=== PATIENT | male | born 2000 | race Caucasian/White ===

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

== ENCOUNTER → 2020-04-13 | Outpatient (REF) | payer BC ==
[~2020-04-13] MED LIST changes: +PRED10TA2; +PRED20TA PO
== END ==
LOC: M LAB REF 17:06
PROVIDERS: ATTEND Physician Assistant
DX: J02.9 Acute pharyngitis, unspecified (principal)

== ENCOUNTER 2020-06-28 13:33 | Emergency (ER) | payer BC, OTHER, SELFPAY ==
[~2020-06-28] VITALS: Ht 182.9 cm; Wt 96.9 kg
[2020-06-28] MEDS ORDERED: ACETAMINOPHEN 500 MG TAB PO ONE (14:45)
--- NOTE | 2020-06-28 15:40 | REPVR ---
PROCEDURE INFORMATION: Exam: XR Left Shoulder Exam date and time: 06/28/2020 3:02 PM Age: 20 years old Clinical indication: Pain; Shoulder; Left; Additional info: Injury TECHNIQUE: Imaging protocol: XR Left shoulder. Views: 2 or more views. COMPARISON: No relevant prior studies available. FINDINGS: Bones/joints: There is no acute fracture or dislocation. Soft tissues: Normal. IMPRESSION: No acute findings. Electronically signed by: Aries Ibarra On 06/28/2020 15:40:36 PM
[2020-06-28] MEDS ORDERED: LIDO5DIS41 TOP (16:36)
[2020-06-28 16:45] VITALS: BP 140/81
[2020-06-28] MEDS ORDERED: LIDOCAINE 5% (LIDODERM) PATCH TD ONE (16:45)
[2020-06-28] MEDS ORDERED: **NOTE PATIENT COMMENT** MISC XX SCH (21:00)
== END 2020-06-28 17:17 | disposition home or self-care (01) ==
LOC: M ED 13:33
DX: S29.012A Strain of muscle and tendon of back wall of thorax, initial encounter (principal); X50.0XXA Overexertion from strenuous movement or load, initial encounter; Y92.89 Other specified places as the place of occurrence of the external cause; Y93.89 Activity, other specified; Y99.0 Civilian activity done for income or pay; Z88.8 Allergy status to other drugs, medicaments and biological substances

== ENCOUNTER 2020-07-04 12:30 | Emergency (ER) | payer BC, OTHER, SELFPAY ==
[~2020-07-04] VITALS: Ht 182.9 cm; Wt 96.2 kg
[2020-07-04 12:30] VITALS: BP 142/69
[~2020-07-04 12:30] MED LIST changes: +LIDO5DIS41 TOP
[2020-07-04] MEDS ORDERED: ROBA750T4 PO (13:43)
== END 2020-07-04 13:51 | disposition home or self-care (01) ==
LOC: M ED 12:30
DX: S43.402A Unspecified sprain of left shoulder joint, initial encounter (principal); S16.1XXA Strain of muscle, fascia and tendon at neck level, initial encounter; X50.0XXA Overexertion from strenuous movement or load, initial encounter; Y92.89 Other specified places as the place of occurrence of the external cause; Y93.89 Activity, other specified; Y99.0 Civilian activity done for income or pay; Z88.8 Allergy status to other drugs, medicaments and biological substances

== ENCOUNTER → 2021-01-12 | Outpatient (CLI) | payer BC, OTHER ==
[~2021-01-12] MED LIST changes: +ROBA750T4 PO
--- NOTE | 2021-01-15 08:09 | REP ---
INDICATION: MUSCLE STRAIN C5-6. Repeat dictation. Preliminary report is provided at the time of the exam by jorje CHAVEZ. COMPARISON: Comparison CT study June 28, 2020.. TECHNIQUE: Sagittal and axial T1 and T2-weighted scans are acquired in the usual fashion with and without fat saturation. Sequences include spin echo, turbo spin-echo, and STIR imaging sequences. FINDINGS: Lumbar vertebral body heights are preserved and alignment is normal. Some straightening of the normal cervical lordosis. Cervical cord is normal in course, caliber, and signal intensity. No cord compressive lesion is seen. Is minimal motion artifact on T2 weighted sequences. There is no evidence of cervical disc protrusion or neural foraminal narrowing. No extra-spinal abnormality is observed. IMPRESSION: Straightening, otherwise unremarkable cervical spine MRI study. <Electronically signed by Jabari Murray > 01/15/21 [id number]
== END ==
LOC: M RAD 15:49
DX: S16.1XXD Strain of muscle, fascia and tendon at neck level, subsequent encounter (principal); W18.30XD Fall on same level, unspecified, subsequent encounter; Y92.009 Unspecified place in unspecified non-institutional (private) residence as the place of occurrence of the external cause

== ENCOUNTER 2021-02-16 12:35 | Emergency (ER) | payer BC, OTHER ==
[~2021-02-16] VITALS: Ht 182.9 cm; Wt 101.3 kg
[2021-02-16] MEDS ORDERED: [UNRECOGNIZED DRUG - OTHER] (12:43)
[2021-02-16 13:30] LABS: BASO % 0.7 % (0.0-1.0); EOS # 0.2 10^3/uL (0.0-0.5); EOS % 2.8 % (0.0-3.0); HEMATOCRIT 47.1 % (42.0-52.0); HEMOGLOBIN 14.7 g/dl (13.5-17.5); LYMPH # 1.2 10^3/uL (1.5-5.0); LYMPH % 22.2 % (24.0-44.0); MEAN CORPUSCULAR HGB CONC 31.2 g/dl (32.0-36.5); MEAN CORPUSCULAR VOLUME 86.6 fl (80.0-96.0); MONO # 0.7 10^3/uL (0.0-0.8); MONO % 12.9 % (2.0-8.0); NEUTROPHILS # 3.3 10^3/uL (1.5-8.5); NEUTROPHILS % 60.8 % (36.0-66.0); PLATELET COUNT, AUTOMATED 340 10^3/uL (150-450); RED BLOOD COUNT 5.44 10^6/uL (4.30-6.10); WHITE BLOOD COUNT 5.4 10^3/uL (4.0-10.0)
[2021-02-16] MEDS ORDERED: METOCLOPRAMIDE INJ 10MG/2ML VIAL (J2765 PER 1) IV ONE (13:30)
[2021-02-16] MEDS ORDERED: NS 1,000 ML IV ONE (13:30)
[2021-02-16] MEDS ORDERED: PANTOPRAZOLE 40MG VIAL (C9113 PER 1) IV ONE (13:30)
[2021-02-16 13:59] LABS: ALBUMIN 3.9 GM/DL (3.2-5.2); BILIRUBIN,DIRECT 0.2 MG/DL (0.0-0.2); BILIRUBIN,TOTAL 0.5 MG/DL (0.2-1.0); TOTAL PROTEIN 6.9 GM/DL (6.4-8.2)
--- NOTE | 2021-02-16 14:07 | REP ---
INDICATION: vomiting. COMPARISON: Abdomen pelvis CT dated 07/30/2017 and PA and lateral chest dated 08/26/2014. TECHNIQUE: Single PA view of the chest and supine and upright views of the abdomen. FINDINGS: PA chest: Lung owusu are clear. Cardiac size is normal. The hellen, mediastinum, and skeletal structures are unremarkable. There is no free subdiaphragmatic air. There is no interval change from 08/26/2014. Supine and upright abdomen: The bowel gas pattern is normal. There are no calcifications or foreign bodies. There are clothing artifacts projected over the pubic symphysis. Skeletal structures and soft tissues otherwise are unremarkable. IMPRESSION: PA chest: Negative PA chest Supine and upright abdomen: Normal bowel gas pattern. Negative supine and upright abdomen. <Electronically signed by Hebert Sanchez > 02/16/21 [id number]
[2021-02-16] MEDS ORDERED: PROT1TAB2 PO (14:14)
[2021-02-16 15:24] VITALS: BP 143/76
== END 2021-02-16 15:27 | disposition home or self-care (01) ==
LOC: M ED 12:35
DX: K29.70 Gastritis, unspecified, without bleeding (principal); Z88.8 Allergy status to other drugs, medicaments and biological substances
CPT/HCPCS: 74021; 80047; 80076; 81001; 83690; 85025; 96361; 96374; 96375; 99284; C9113; J2765

== ENCOUNTER 2021-12-25 20:43 | Emergency (ER) | payer BC ==
[~2021-12-25] VITALS: Ht 182.9 cm; Wt 96.7 kg
[~2021-12-25 20:43] MED LIST changes: +PROT1TAB2 PO; +[UNRECOGNIZED DRUG - OTHER]
[2021-12-25 20:46] VITALS: BP 130/69
[2021-12-26] MEDS ORDERED: NS 1,000 ML IV ONE
[2021-12-26 00:56] LABS: BASO % 0.5 % (0.0-1.0); EOS # 0.1 10^3/uL (0.0-0.5); EOS % 1.9 % (0.0-3.0); HEMATOCRIT 43.2 % (42.0-52.0); HEMOGLOBIN 14.9 g/dl (13.5-17.5); LYMPH % 23.6 % (24.0-44.0); MEAN CORPUSCULAR HEMOGLOBIN 27.5 pg (27.0-33.0); MEAN CORPUSCULAR HGB CONC 34.5 g/dl (32.0-36.5); MEAN CORPUSCULAR VOLUME 79.9 fl (80.0-96.0); MONO # 0.6 10^3/uL (0.0-0.8); MONO % 14.7 % (2.0-8.0); NEUTROPHILS # 2.4 10^3/uL (1.5-8.5); NEUTROPHILS % 58.8 % (36.0-66.0); PLATELET COUNT, AUTOMATED 206 10^3/uL (150-450); RED BLOOD COUNT 5.41 10^6/uL (4.30-6.10); WHITE BLOOD COUNT 4.2 10^3/uL (4.0-10.0)
[2021-12-26] MEDS ORDERED: POTASSIUM CHLORIDE 10MEQ SR TABLET PO ONE (01:20)
[2021-12-26 01:24] LABS: ALBUMIN 3.9 GM/DL (3.2-5.2); BILIRUBIN,DIRECT 0.3 MG/DL (0.0-0.2); BILIRUBIN,TOTAL 0.9 MG/DL (0.2-1.0); TOTAL PROTEIN 6.6 GM/DL (6.4-8.2)
[2021-12-26] MEDS ORDERED: ONDA4TAB6 PO (01:36)
[2021-12-26] MEDS ORDERED: ONDANSETRON 4MG/2ML VIAL IV ONE ×2 (01:50)
== END 2021-12-26 02:29 | disposition home or self-care (01) ==
LOC: M ED 20:43
DX: E86.0 Dehydration (principal); K52.9 Noninfective gastroenteritis and colitis, unspecified; E87.6 Hypokalemia; R63.0 Anorexia; R05.9 Cough, unspecified; K21.9 Gastro-esophageal reflux disease without esophagitis; Z88.8 Allergy status to other drugs, medicaments and biological substances; Z79.899 Other long term (current) drug therapy
CPT/HCPCS: 71046; 80047; 80076; 81001; 83690; 85025; 87804; 96361; 96374; 99282; J2405

== ENCOUNTER → 2021-12-31 | Outpatient (CLI) | payer BC ==
[~2021-12-31] MED LIST changes: +ONDA4TAB6 PO
[2021-12-31 16:50] LABS: HEPATITIS B CORE ANTIBODY IGM NEGATIVE (NEGATIVE); HIV 1&2 SCREEN CENTAUR NEGATIVE (NEGATIVE)
== END ==
LOC: M LAB 14:52
PROVIDERS: ATTEND Physician Assistant Medical
DX: Z11.4 Encounter for screening for human immunodeficiency virus [HIV] (principal)

== ENCOUNTER → 2022-06-19 | Outpatient (REF) | payer BC ==
[2022-06-19 17:07] LABS: APPEARANCE, URINE MANUAL CLEAR (CLEAR); COLOR, URINE MANUAL YELLOW (YELLOW)
[2022-06-19 17:08] LABS: BILIRUBIN, URINE MANUAL NEGATIVE (NEGATIVE); BLOOD URINE MANUAL NEGATIVE (NEGATIVE); GLUCOSE, URINE (UA) MANUAL NEGATIVE (NEGATIVE); KETONE, URINE MANUAL NEGATIVE (NEGATIVE); LEUKOCYTE ESTERASE, URINE MAN NEGATIVE (NEGATIVE); NITRITE, URINE MANUAL NEGATIVE (NEGATIVE); PROTEIN, URINE MANUAL NEGATIVE (NEGATIVE); SPECIFIC GRAVITY,URINE MANUAL 1.015 (1.002-1.035); UROBILINOGEN, URINE MANUAL NORMAL (NORMAL)
[2022-06-19 18:28] LABS: GC DNA AMPLIFICATION NEGATIVE (NEGATIVE)
== END ==
LOC: M LAB REF 16:20
PROVIDERS: ATTEND Physician Assistant
DX: N39.0 Urinary tract infection, site not specified (principal); Z20.2 Contact with and (suspected) exposure to infections with a predominantly sexual mode of transmission

== ENCOUNTER → 2022-10-05 | Outpatient (REF) | payer BC | LOC: M LAB REF 13:24 | PROVIDERS: ATTEND Physician Assistant Medical | DX: J02.9 Acute pharyngitis, unspecified (principal); R05.9 Cough, unspecified; R50.9 Fever, unspecified ==

== ENCOUNTER → 2022-11-17 | Outpatient (CLI) | payer BC | LOC: M LABSMTC 11:47 | PROVIDERS: ATTEND Anesthesiology | DX: Z01.818 Encounter for other preprocedural examination (principal); Z11.52 Encounter for screening for COVID-19 ==

== ENCOUNTER 2022-11-20 10:54 | Day surgery (SDC) | payer BC ==
[~2022-11-20] VITALS: Ht 182.9 cm; Wt 99.3 kg
[~2022-11-20 10:54] MED LIST changes: +ceFAZolin SOD 2 GM in IV 1 EA IV ONE
[2022-11-20] MEDS ORDERED: LR 1,000 ML IV SCH ×2 (11:00→14:05)
[2022-11-20] MEDS ORDERED: fentaNYL 100 MCG/2 ML INJECTION As Ordered ONE (12:20)
[2022-11-20] MEDS ORDERED: MIDAZOLAM INJ 2MG/2ML VIAL As Ordered ONE (12:20)
[2022-11-20] MEDS ORDERED: propofoL 200 MG/20 ML VIAL As Ordered ONE ×2 (12:21→13:22)
[2022-11-20] MEDS ORDERED: ONDANSETRON 4MG 2ML VIAL As Ordered ONE (12:21)
[2022-11-20] MEDS ORDERED: LIDOCAINE 2% 100MG/5ML SDV (FOR ANES.) As Ordered ONE (12:21)
[2022-11-20] MEDS ORDERED: KETOROLAC 60MG 2ML VIAL As Ordered ONE (12:21)
[2022-11-20] MEDS ORDERED: LIDOCAINE 1% MDV 20ML VIAL As Ordered ONE (12:22)
[2022-11-20] MEDS ORDERED: BACITRACIN OINTMENT 30GM TUBE As Ordered ONE (12:22)
[2022-11-20] MEDS ORDERED: BUPIVACAINE HCL 0.25% 30ML VIAL As Ordered ONE (12:22)
[2022-11-20] MEDS ORDERED: fentaNYL 100 MCG/2 ML INJECTION IV PRN (14:05)
[2022-11-20] MEDS ORDERED: ONDANSETRON 4MG 2ML VIAL IV PRN (14:05)
[2022-11-20] MEDS ORDERED: oxyCODONE 5MG TAB PO PRN (14:05)
[2022-11-20] MEDS ORDERED: OXYC1TAB23 PO (14:26)
[2022-11-20 14:55] VITALS: BP 136/65
[2022-11-20] MEDS ORDERED: PERCOCET 5MG/325MG TAB PO PRN (14:55)
== END 2022-11-20 15:45 | disposition home or self-care (01) ==
LOC: M SDC 10:54
PROVIDERS: ATTEND Urology
DX: Q55.22 Retractile testis (principal); Z88.8 Allergy status to other drugs, medicaments and biological substances
CPT/HCPCS: 54640; G0463; J1100; J2405

== ENCOUNTER → 2023-08-14 | Outpatient (REF) | payer BC ==
[~2023-08-14] MED LIST changes: +OXYC1TAB23 PO; -ceFAZolin SOD 2 GM in IV 1 EA IV ONE
== END ==
LOC: M LAB REF 16:15
PROVIDERS: ATTEND Physician Assistant
DX: J02.9 Acute pharyngitis, unspecified (principal)

== ENCOUNTER → 2023-08-15 | Outpatient (REF) | payer BC ==
[2023-08-15 22:03] LABS: APPEARANCE, URINE CLEAR (CLEAR); BACTERIA, URINE AUTO NEGATIVE (NEGATIVE); BILIRUBIN, URINE AUTO NEGATIVE (NEGATIVE); BLOOD, URINE BLOOD NEGATIVE (NEGATIVE); COLOR, URINE AMBER (YELLOW); GLUCOSE, URINE (UA) AUTO NEGATIVE (NEGATIVE); KETONE, URINE AUTO TRACE mg/dL (NEGATIVE); LEUKOCYTE ESTERASE, URINE AUTO NEGATIVE (NEGATIVE); MUCUS, URINE SMALL (NEGATIVE); NITRITE, URINE AUTO NEGATIVE (NEGATIVE); PROTEIN, URINE AUTO NEGATIVE (NEGATIVE); RBC, URINE AUTO 1 /HPF (0-3); SPECIFIC GRAVITY URINE AUTO 1.032 (1.002-1.035); SQUAMOUS EPITHELIAL CELL UR AU 1 /HPF (0-6); WBC, URINE AUTO 1 /HPF (0-3)
[2023-08-15 23:22] LABS: GC DNA AMPLIFICATION NEGATIVE (NEGATIVE)
== END ==
LOC: M LAB REF 21:25
PROVIDERS: ATTEND Physician Assistant
DX: Z20.2 Contact with and (suspected) exposure to infections with a predominantly sexual mode of transmission (principal)

== ENCOUNTER → 2023-08-21 | Outpatient (CLI) | payer OTHER | LOC: M PLAIMG 12:33 | PROVIDERS: ATTEND Physician Assistant | DX: M51.36 Other intervertebral disc degeneration, lumbar region (principal) ==

== ENCOUNTER → 2023-10-08 | Outpatient (REF) | payer BC ==
[2023-10-08 23:06] LABS: CHLAMYDIA DNA AMPLIFICATION NEGATIVE (NEGATIVE); GC DNA AMPLIFICATION NEGATIVE (NEGATIVE)
== END ==
LOC: M LAB REF 21:14
PROVIDERS: ATTEND Physician Assistant
DX: Z20.2 Contact with and (suspected) exposure to infections with a predominantly sexual mode of transmission (principal)

== ENCOUNTER → 2024-02-24 | Outpatient (REF) | payer BC ==
[2024-02-24 23:11] LABS: Trichomonas vaginalis (AMP) NOT DETECTED (NEGATIVE)
[2024-02-24 23:35] LABS: GC DNA AMPLIFICATION NEGATIVE (NEGATIVE)
== END ==
LOC: M LAB REF 21:00
PROVIDERS: ATTEND Physician Assistant Medical
DX: J02.9 Acute pharyngitis, unspecified (principal); Z20.2 Contact with and (suspected) exposure to infections with a predominantly sexual mode of transmission

== ENCOUNTER 2024-09-25 13:03 | Emergency (ER) | payer BC ==
[~2024-09-25] VITALS: Ht 180.3 cm; Wt 101.2 kg
[~2024-09-25 13:03] MED LIST changes: +ONDA-282 PO; -ONDA4TAB6 PO
[2024-09-25 13:42] LABS: BASO # 0.1 10^3/uL (0.0-0.2); EOS # 0.2 10^3/uL (0.0-0.5); EOS % 2.6 % (0.0-3.0); HEMATOCRIT 44.2 % (42.0-52.0); HEMOGLOBIN 15.3 g/dl (13.5-17.5); LYMPH # 1.4 10^3/uL (1.5-5.0); LYMPH % 21.9 % (24.0-44.0); MEAN CORPUSCULAR HEMOGLOBIN 28.3 pg (27.0-33.0); MEAN CORPUSCULAR HGB CONC 34.6 g/dl (32.0-36.5); MEAN CORPUSCULAR VOLUME 81.9 fl (80.0-96.0); MONO # 0.6 10^3/uL (0.0-0.8); MONO % 10.2 % (2.0-8.0); NEUTROPHILS % 63.7 % (36.0-66.0); PLATELET COUNT, AUTOMATED 268 10^3/uL (150-450); WHITE BLOOD COUNT 6.2 10^3/uL (4.0-10.0)
[2024-09-25 14:08] LABS: BILIRUBIN,DIRECT 0.3 MG/DL (<0.4); TOTAL PROTEIN 6.8 G/DL (5.7-8.2)
[2024-09-25 14:58] VITALS: BP 103/58; TEMP 97.8; O2SAT 98
[2024-09-26] MEDS ORDERED: REGL5TAB2 PO (15:19)
== END 2024-09-25 15:36 | disposition home or self-care (01) ==
LOC: M ED 13:03
DX: R10.9 Unspecified abdominal pain (principal); R11.10 Vomiting, unspecified; Z88.8 Allergy status to other drugs, medicaments and biological substances; Z79.899 Other long term (current) drug therapy

== ENCOUNTER 2024-09-26 12:12 | Emergency (ER) | payer BC ==
[~2024-09-26] VITALS: Ht 180.3 cm; Wt 100.1 kg
[2024-09-26 12:18] VITALS: TEMP 97.2
[2024-09-26 12:54] LABS: BASO # 0.1 10^3/uL (0.0-0.2); BASO % 0.9 % (0.0-1.0); EOS # 0.1 10^3/uL (0.0-0.5); EOS % 1.2 % (0.0-3.0); HEMATOCRIT 45.9 % (42.0-52.0); HEMOGLOBIN 15.6 g/dl (13.5-17.5); LYMPH # 1.7 10^3/uL (1.5-5.0); LYMPH % 20.7 % (24.0-44.0); MEAN CORPUSCULAR HEMOGLOBIN 28.1 pg (27.0-33.0); MEAN CORPUSCULAR VOLUME 82.6 fl (80.0-96.0); MONO # 0.9 10^3/uL (0.0-0.8); MONO % 11.4 % (2.0-8.0); NEUTROPHILS # 5.3 10^3/uL (1.5-8.5); NEUTROPHILS % 65.2 % (36.0-66.0); PLATELET COUNT, AUTOMATED 298 10^3/uL (150-450); RED BLOOD COUNT 5.56 10^6/uL (4.30-6.10); WHITE BLOOD COUNT 8.1 10^3/uL (4.0-10.0)
[2024-09-26] MEDS ORDERED: ISOVUE-370 76% 100ML VIAL As Ordered ONE (12:54)
[2024-09-26 13:20] LABS: ALBUMIN 4.3 G/DL (3.2-5.2); BILIRUBIN,DIRECT 0.3 MG/DL (<0.4); BILIRUBIN,TOTAL 1.1 MG/DL (0.3-1.2); TOTAL PROTEIN 7.4 G/DL (5.7-8.2)
[2024-09-26] MEDS: METOCLOPRAMIDE INJ 10MG/2ML VIAL IV ONE (14:37)
[2024-09-26] MEDS ORDERED: REGL5TAB2 PO (15:19)
[2024-09-26 15:26] VITALS: BP 127/70; O2SAT 99
== END 2024-09-26 15:27 | disposition home or self-care (01) ==
LOC: M ED 12:12
DX: A08.39 Other viral enteritis (principal); Z88.8 Allergy status to other drugs, medicaments and biological substances; Z79.899 Other long term (current) drug therapy
CPT/HCPCS: 74177; 80047; 80076; 81001; 83690; 85025; 96374; 99284; J2765; Q9967

== ENCOUNTER 2025-01-09 16:20 | Emergency (ER) | payer OTHER, BC ==
[~2025-01-09] VITALS: Ht 182.9 cm; Wt 97.7 kg
[~2025-01-09 16:20] MED LIST changes: +REGL5TAB2 PO
[2025-01-09] MEDS ORDERED: MELO7.5T35 (16:28)
[2025-01-09] MEDS ORDERED: MELO7.5T35 PO (18:07)
[2025-01-09 18:24] VITALS: BP 131/67; TEMP 98.8; O2SAT 98
[2025-01-09] MEDS: KETOROLAC 30 MG/ML 1ML VIAL IM ONE (18:34)
[2025-01-09] MEDS: ACETAMINOPHEN 500 MG TAB PO ONE (18:35)
== END 2025-01-09 18:45 | disposition home or self-care (01) ==
LOC: M ED 16:20
DX: M54.50 Low back pain, unspecified (principal); W11.XXXA Fall on and from ladder, initial encounter; Y92.9 Unspecified place or not applicable; Y93.89 Activity, other specified; Y99.0 Civilian activity done for income or pay; Z88.8 Allergy status to other drugs, medicaments and biological substances

== ENCOUNTER 2025-02-17 22:24 | Emergency (ER) | payer BC, OTHER ==
[~2025-02-17 22:24] MED LIST changes: +MELO7.5T35; +MELO7.5T35 PO
[2025-02-17 22:27] VITALS: BP 123/66; O2SAT 97
[2025-02-18] MEDS: ONDANSETRON 4MG ORAL DISINTEGRATING TAB PO ONE (00:08)
[2025-02-18] MEDS ORDERED: ONDA-282 PO (00:29)
[2025-02-18 00:31] VITALS: TEMP 98.6
== END 2025-02-18 00:50 | disposition home or self-care (01) ==
LOC: M ED 22:24
DX: R11.10 Vomiting, unspecified (principal); R19.7 Diarrhea, unspecified; F17.210 Nicotine dependence, cigarettes, uncomplicated; Z88.8 Allergy status to other drugs, medicaments and biological substances; Z79.899 Other long term (current) drug therapy

== ENCOUNTER 2025-03-08 21:13 | Inpatient (IN) | payer BC ==
[~2025-03-08] VITALS: Ht 182.9 cm; Wt 100.8 kg
[~2025-03-08 21:13] MED LIST changes: -MELO7.5T35
[2025-03-08 21:51] LABS: HEMATOCRIT 44.4 % (42.0-52.0); HEMOGLOBIN 15.2 g/dl (13.5-17.5); MEAN CORPUSCULAR HEMOGLOBIN 27.9 pg (27.0-33.0); MEAN CORPUSCULAR HGB CONC 34.2 g/dl (32.0-36.5); MEAN CORPUSCULAR VOLUME 81.6 fl (80.0-96.0); PLATELET COUNT, AUTOMATED 278 10^3/uL (150-450); RED BLOOD COUNT 5.44 10^6/uL (4.30-6.10); WHITE BLOOD COUNT 6.9 10^3/uL (4.0-10.0)
[2025-03-08] MEDS: CHARCOAL ACTIVATED LIQUID 25GM/120ML BTL PO ONE (22:08)
[2025-03-08 22:13] LABS: ETHYL ALCOHOL (ETHANOL) 0.021 % (0.000-0.010)
[2025-03-08 22:14] LABS: SALICYLATE LEVEL < 3.0 MG/DL (<30)
[2025-03-08 22:15] LABS: ALBUMIN 4.3 G/DL (3.2-5.2); ALKALINE PHOSPHATASE 92 U/L (40-129); ALT/SGPT 28 U/L (7.0-40); AST/SGOT 16 U/L (<34); BILIRUBIN,DIRECT 0.2 MG/DL (<0.4); BILIRUBIN,TOTAL 0.6 MG/DL (0.3-1.2); BLOOD UREA NITROGEN 16 MG/DL (9-23); CALCIUM LEVEL 9.6 MG/DL (8.5-10.1); CARBON DIOXIDE LEVEL 25 MMOL/L (20-31); CHLORIDE LEVEL 104 MMOL/L (98-107); CREATININE FOR GFR 0.91 MG/DL (0.70-1.30); GLOMERULAR FILTRATION RATE > 90.0 (>60); GLUCOSE, FASTING 107 MG/DL (60-100); MAGNESIUM LEVEL 2.1 MG/DL (1.8-2.4); POTASSIUM SERUM 3.8 MMOL/L (3.5-5.1); SODIUM LEVEL 141 MMOL/L (136-145)
[2025-03-08 22:19] LABS: THYROID STIMULATING HORMONE 3.366 uIU/ML (0.55-4.78)
[2025-03-08 22:24] LABS: AMPHETAMINES LEVEL URINE NEGATIVE (NEGATIVE); BARBITURATES URINE NEGATIVE (NEGATIVE); BENZODIAZEPINES URINE NEGATIVE (NEGATIVE); CANNABINOIDS URINE NEGATIVE (NEGATIVE); COCAINE METABOLITE URINE NEGATIVE (NEGATIVE); METHADONE URINE NEGATIVE (NEGATIVE); OPIATES URINE NEGATIVE (NEGATIVE); PHENCYCLIDINE URINE NEGATIVE (NEGATIVE)
[2025-03-08 23:41] LABS: ABG BASE EXCESS -1.1 (-2.0-2.0); ABG HCO3 23.4 MMOL/L (22.0-26.0); ABG O2 SATURATION 97.7 % (95.0-99.0); ABG PARTIAL PRESSURE CO2 38.5 mmHg (35.0-45.0); ABG PARTIAL PRESSURE O2 104.9 mmHg (75.0-100.0); ABG STANDARD HCO3 23.6 MMOL/L. (22.0-26.0); ABG TOTAL CO2 24.5 MMOL/L (22.0-29.0); ABG pH (ARTERIAL) 7.401 UNITS (7.350-7.450)
[2025-03-08] MEDS ORDERED: MIDAZOLAM INJ 2MG/2ML VIAL IV ONE (23:50)
[2025-03-09] MEDS ORDERED: OMEP-173 PO (01:54)
[2025-03-09] MEDS ORDERED: ALBU8.5H INH (01:54)
[2025-03-09] MEDS ORDERED: RISATAB3 PO (01:54)
[2025-03-09] MEDS ORDERED: HOME MED LIST COMPLETE! XX SCH (01:55)
[2025-03-09] MEDS: NICOTINE 7 MG/24 HR TRANSDERMAL TD ONE (05:07)
[2025-03-09] MEDS ORDERED: MAALOX 30 ML SUSP *UDC PO PRN (05:45)
[2025-03-09] MEDS ORDERED: ACETAMINOPHEN 325 MG TAB PO PRN (05:45)
[2025-03-09] MEDS ORDERED: traZODone 50 MG TAB PO PRN (05:45)
[2025-03-09] MEDS ORDERED: diphenhydrAMINE 25MG CAP PO PRN (05:45)
[2025-03-09] MEDS ORDERED: MOM 30ML SUSPENSION UDC PO PRN (05:45)
[2025-03-09] MEDS ORDERED: IBUPROFEN 400MG TAB PO PRN (05:45)
[2025-03-09 08:03] VITALS: BP 124/58; TEMP 97.9; O2SAT 97
[2025-03-09] MEDS: DIVALPROEX 250MG TAB PO ONE (10:34)
[2025-03-09] MEDS ORDERED: ALBUTEROL 90 MCG/ACT 8GM HFA INHALER INH PRN (12:30)
[2025-03-09] MEDS: LACTOBACILLUS ACIDOPHILUS CAP (BACID) PO SCH (12:50)
[2025-03-09] MEDS: OMEPRAZOLE 20MG CAP PO SCH (12:51)
[2025-03-09 15:43] VITALS: BP 139/66; TEMP 97.5; O2SAT 100
[2025-03-10 06:39] VITALS: BP 140/75; TEMP 97.4; O2SAT 97
[2025-03-10] MEDS: NICOTINE 21MG/24HR 1 EA TRANSDERMAL TD SCH (09:06)
[2025-03-10] MEDS ORDERED: DEPA1TAB PO (09:41)
== END 2025-03-10 11:28 | disposition home or self-care (01) | DRG 753 ==
LOC: M ED 21:13 → M ED INP 03-09 05:42 → M PSY 03-09 07:52
PROVIDERS: ADMIT Student in an Organized Health Care Education/Training Program; ATTEND Psychiatry & Neurology Psychiatry
DX: F31.9 Bipolar disorder, unspecified (principal); R45.851 Suicidal ideations; F17.210 Nicotine dependence, cigarettes, uncomplicated; F10.10 Alcohol abuse, uncomplicated; K21.9 Gastro-esophageal reflux disease without esophagitis; T39.392A Poisoning by other nonsteroidal anti-inflammatory drugs [NSAID], intentional self-harm, initial encounter; R05.3 Chronic cough; Z91.52 Personal history of nonsuicidal self-harm; Z88.8 Allergy status to other drugs, medicaments and biological substances; Z87.820 Personal history of traumatic brain injury; Z79.899 Other long term (current) drug therapy

== ENCOUNTER 2025-03-16 10:29 | Inpatient (IN) | payer BC ==
[~2025-03-16] VITALS: Ht 182.9 cm; Wt 101.1 kg
[~2025-03-16 10:29] MED LIST changes: +ALBU8.5H INH; +DEPA1TAB PO; +OMEP-173 PO; +RISATAB3 PO
[2025-03-16 11:24] LABS: HEMATOCRIT 47.3 % (42.0-52.0); HEMOGLOBIN 15.8 g/dl (13.5-17.5); MEAN CORPUSCULAR HEMOGLOBIN 27.5 pg (27.0-33.0); MEAN CORPUSCULAR HGB CONC 33.4 g/dl (32.0-36.5); MEAN CORPUSCULAR VOLUME 82.4 fl (80.0-96.0); PLATELET COUNT, AUTOMATED 257 10^3/uL (150-450); RED BLOOD COUNT 5.74 10^6/uL (4.30-6.10); WHITE BLOOD COUNT 6.7 10^3/uL (4.0-10.0)
[2025-03-16 11:46] LABS: AMPHETAMINES LEVEL URINE NEGATIVE (NEGATIVE)
[2025-03-16 11:47] LABS: BARBITURATES URINE NEGATIVE (NEGATIVE); BENZODIAZEPINES URINE NEGATIVE (NEGATIVE); CANNABINOIDS URINE NEGATIVE (NEGATIVE); COCAINE METABOLITE URINE NEGATIVE (NEGATIVE); METHADONE URINE NEGATIVE (NEGATIVE); OPIATES URINE NEGATIVE (NEGATIVE); PHENCYCLIDINE URINE NEGATIVE (NEGATIVE)
[2025-03-16 11:48] LABS: ETHYL ALCOHOL (ETHANOL) < 0.003 % (0.000-0.010)
[2025-03-16 11:50] LABS: SALICYLATE LEVEL < 3.0 MG/DL (<30)
[2025-03-16 11:51] LABS: ALBUMIN 4.1 G/DL (3.2-5.2); ALKALINE PHOSPHATASE 96 U/L (40-129); ALT/SGPT 35 U/L (7.0-40); AST/SGOT 17 U/L (<34); BILIRUBIN,DIRECT 0.2 MG/DL (<0.4); BILIRUBIN,TOTAL 0.8 MG/DL (0.3-1.2); BLOOD UREA NITROGEN 14 MG/DL (9-23); CALCIUM LEVEL 9.4 MG/DL (8.5-10.1); CARBON DIOXIDE LEVEL 32 MMOL/L (20-31); CHLORIDE LEVEL 102 MMOL/L (98-107); CREATININE FOR GFR 0.88 MG/DL (0.70-1.30); GLOMERULAR FILTRATION RATE > 90.0 (>60); GLUCOSE, FASTING 141 MG/DL (60-100); SODIUM LEVEL 142 MMOL/L (136-145); TOTAL PROTEIN 6.8 G/DL (5.7-8.2)
[2025-03-16 11:53] LABS: THYROID STIMULATING HORMONE 2.302 uIU/ML (0.55-4.78)
[2025-03-16] MEDS ORDERED: DIVA1TAB48 PO (13:45)
[2025-03-16] MEDS ORDERED: HOME MED LIST COMPLETE! XX SCH ×2 (13:45)
[2025-03-16 14:54] VITALS: BP 124/64; TEMP 97.8; O2SAT 98
[2025-03-16] MEDS ORDERED: MOM 30ML SUSPENSION UDC PO PRN (16:50)
[2025-03-16] MEDS ORDERED: IBUPROFEN 400MG TAB PO PRN (16:50)
[2025-03-16] MEDS ORDERED: MAALOX 30 ML SUSP *UDC PO PRN (16:50)
[2025-03-16] MEDS ORDERED: diphenhydrAMINE 25MG CAP PO PRN (16:50)
[2025-03-16] MEDS: NICOTINE 21MG/24HR 1 EA TRANSDERMAL TD SCH (17:34)
[2025-03-16] MEDS: DIVALPROEX 125 MG TAB PO SCH (20:10)
[2025-03-16] MEDS: ACETAMINOPHEN 325 MG TAB PO PRN (20:10)
[2025-03-17] MEDS: traZODone 50 MG TAB PO PRN (00:03)
[2025-03-17 06:26] VITALS: BP 143/100; TEMP 97.7; O2SAT 98
[2025-03-17] MEDS: ESCITALOPRAM OXALATE 5MG TABLET (LEXAPRO) PO SCH (09:13)
[2025-03-17] MEDS: CEPACOL LOZENGE PO PRN (13:00)
[2025-03-17 15:18] VITALS: BP 133/75; TEMP 97.5; O2SAT 98
[2025-03-17] MEDS: BENZONATATE 100MG CAPSULE PO PRN (23:15)
[2025-03-18] MEDS: OLANZapine 5 MG TAB PO PRN
[2025-03-18 07:04] VITALS: BP 119/59; TEMP 97.3; O2SAT 98
[2025-03-18] MEDS ORDERED: traZODone 50 MG TAB PO PRN (09:15)
[2025-03-18] MEDS ORDERED: PILL CUTTER 1 EACH XX PRN (09:20)
[2025-03-18 15:27] VITALS: BP 136/77; TEMP 97.7; O2SAT 98
[2025-03-18] MEDS ORDERED: TRAZ-252 PO (15:39)
[2025-03-18] MEDS ORDERED: LEXA5TAB13 PO (15:39)
== END 2025-03-18 16:13 | disposition home or self-care (01) | DRG 753 ==
LOC: M ED 10:29 → M ED INP 13:20 → M PSY 14:50
PROVIDERS: ADMIT Psychiatry & Neurology Psychiatry; ATTEND Psychiatry & Neurology Psychiatry
DX: F31.9 Bipolar disorder, unspecified (principal); R45.851 Suicidal ideations; Z91.51 Personal history of suicidal behavior; F17.200 Nicotine dependence, unspecified, uncomplicated; F10.10 Alcohol abuse, uncomplicated; M54.9 Dorsalgia, unspecified; G89.29 Other chronic pain; Z79.899 Other long term (current) drug therapy; Z88.8 Allergy status to other drugs, medicaments and biological substances; Z87.820 Personal history of traumatic brain injury; Z62.811 Personal history of psychological abuse in childhood